=== PATIENT | male | born 1935 | race Caucasian/White ===

== ENCOUNTER 2017-10-23 15:40 | Emergency (ER) | payer MEDICARE, OTHER, SELFPAY | END 2017-10-23 18:16 | disposition home or self-care (01) | PROVIDERS: Emergency Provider Emergency Medicine; Family Provider Internal Medicine Cardiovascular Disease; Visit Provider Emergency Medicine | DX: I48.91 Unspecified atrial fibrillation (principal) | CPT/HCPCS: 71010; 71045; 80053; 83735; 84484; 85025; 85610; 85730; 93005; 93010; 96361; 96374; 99058; 99285 ==

== ENCOUNTER → 2018-03-27 13:10 | Outpatient (CLI) | payer MEDICARE, OTHER, SELFPAY ==
[2018-03-27 14:32] LABS: INR 2.6 (0.9-1.3); Prothrombin Time 28.3 SECONDS (10.1-12.7)
== END ==
PROVIDERS: Family Provider Internal Medicine Cardiovascular Disease; PCP Family Medicine; Visit Provider Family Medicine
DX: I48.91 Unspecified atrial fibrillation (principal); Z95.1 Presence of aortocoronary bypass graft; Z95.5 Presence of coronary angioplasty implant and graft
CPT/HCPCS: 36415; 85610

== ENCOUNTER → 2018-12-19 14:23 | Outpatient (CLI) | payer MEDICARE, OTHER, SELFPAY ==
--- NOTE | 2018-12-19 14:27 | DI.RAD.S_ITS ---
PROCEDURE: XR CHEST 2V INDICATIONS: Crackles on exam TECHNIQUE: 2 views of the chest were acquired. COMPARISON: [facility], , CHEST 1 VIEW, 10/23/2017, 16:18. FINDINGS: Surgical changes and devices: Median sternotomy wires are again seen. 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 Lungs and pleura: There is mild pulmonary vascular congestion. No definite focal infiltrate. No pleural effusions or pneumothorax. Mediastinum: Mediastinal contours are normal. Heart size is enlarged. Bones and chest wall: No suspicious bony abnormalities. Soft tissues appear unremarkable. IMPRESSION: Cardiomegaly and mild congestion. No focal infiltrate, pleural effusion or gross pneumothorax. Dictated by: Terry Mariscal M.D. on 12/19/2018 at 15:30 Approved by: Terry Mariscal M.D. on 12/19/2018 at 15:31
[2018-12-19 15:45] LABS: Alanine Aminotransferase 23 IU/L (21-72); Albumin 3.8 g/dL (3.5-5.0); Albumin Globulin Ratio 1.1 (1.0-2.8); Alkaline Phosphatase 103 U/L (38-126); Aspartate Aminotransferase 29 IU/L (17-59); Bilirubin Total 0.9 mg/dL (0.2-1.3); Blood Urea Nitrogen 20 mg/dL (9-20); Calcium 10.2 mg/dL (8.4-10.2); Carbon Dioxide 27 mmol/L (22-32); Chloride 102 mmol/L (98-107); Estimated Glomerular Filt Rate > 60.0 mL/min (>60); Globulin 3.4 g/dL (1.7-4.1); Glucose 153 mg/dL (80-110); HEMOLYSIS < 15 (0-50); Potassium 4.2 mmol/L (3.4-5.1); Sodium 137 mmol/L (137-145); Total Protein 7.2 g/dL (6.3-8.2)
[2018-12-19 15:56] LABS: B Type Natriuretic Peptide 205 (<100)
[2018-12-19 16:26] LABS: Add Manual Diff / Slide Review NO; Basophils Absolute Auto 0 /uL (0-100); Basophils Percent Auto 0.5 % (0-2); Eosinophils Absolute Auto 300 /uL (0-450); Eosinophils Percent Auto 3.3 % (2-4); Hematocrit 44.7 % (41-53); Lymphocytes Absolute Auto 1300 /uL (1100-4500); Lymphocytes Percent Auto 14.8 % (25-40); Mean Corpuscular HGB Conc 33.5 % (30-36); Mean Corpuscular Volume 86.6 fL (80-100); Monocytes Absolute Auto 1100 /uL (0-900); Neutrophils Absolute Auto 6300 /uL (1500-7000); Neutrophils Percent Auto 69.4 % (50-75); Platelet Count 263 X10^3/uL (150-400); Red Blood Cell Count 5.17 X10^6/uL (4.5-5.9); Red Cell Distribution Width 14.3 % (11.6-14.8); White Blood Cell Count 9.1 X10^3/uL (4.5-11.0)
[2018-12-19 17:40] LABS: Prostate Specific Antigen Scrn 1.84 ng/mL (0.1-4.0)
== END ==
PROVIDERS: Registered Nurse; PCP Family Medicine; Visit Provider Family Medicine
DX: R09.89 Other specified symptoms and signs involving the circulatory and respiratory systems (principal); I11.9 Hypertensive heart disease without heart failure; I48.91 Unspecified atrial fibrillation; R60.0 Localized edema; E78.2 Mixed hyperlipidemia; Z95.2 Presence of prosthetic heart valve
CPT/HCPCS: 36415; 71046; 80053; 83880; 84443; 85025; G0103

== ENCOUNTER → 2018-12-19 14:53 | Outpatient (CLI) | payer MEDICARE, OTHER, SELFPAY | PROVIDERS: PCP Family Medicine; Visit Provider Registered Nurse | DX: R09.89 Other specified symptoms and signs involving the circulatory and respiratory systems (principal); I51.7 Cardiomegaly; Z95.2 Presence of prosthetic heart valve ==

== ENCOUNTER → 2018-12-29 13:15 | Outpatient (CLI) | payer MEDICARE, OTHER, SELFPAY ==
--- NOTE | 2018-12-29 13:17 | DI.ECHO.S_ITS ---
[facility]---------+ [facility] +---------+ : : [address] : [address] : : : : [id number] : : : : Phone: [phone]+ Echocardiogram Report + + :Name: DARRION QUEVEDO Study Date: 12/29/2018 Height: 70 in : :[facility] Exam Location: [facility] Weight: 223 lb : : Gender: Male BSA: 2.2 m2 : :: 1935 Age: 83 yrs BP: 110/70 mmHg: :Reason For Study: Crackles on exam : : Performed By: Tish Page : :Referring: CAM ROBLES : + + Interpretation Summary Left ventricular wall thickness is at the upper limits of normal. Left ventricular ejection fraction is estimated to be .35. There is mild hypokinesis of the left ventricle and severe inferior hypokinesis. Laterl wall appears to move the best Right ventricular systolic function is mildly reduced. There is a bioprosthetic aortic valve. The prosthetic aortic valve is well-seated. Procedure: A two-dimensional transthoracic echocardiogram with color flow and Doppler was performed. The study quality was technically adequate. There is no prior echocardiogram noted for this patient. The heart rate ranged between 66-97 bpm during the study. Left Ventricle: The left ventricle is normal in size. Left ventricular wall thickness is at the upper limits of normal. Left ventricular ejection fraction is estimated to be .35. There is mild hypokinesis of the left ventricle and severe inferior hypokinesis. Laterl wall appears to move the best. There is a mild dyssynchronous contraction pattern, consistent with a conduction abnormality. Right Ventricle: The right ventricle is normal size. Right ventricular systolic function is mildly reduced. Atria: The left atrium is mildly dilated. The right atrium is severely dilated. There is no Doppler evidence for an interatrial shunt. Mitral Valve: The mitral valve leaflets are mildly calcified. There is mild mitral annular calcification. There is trace mitral regurgitation. Aortic Valve: There is a bioprosthetic aortic valve. The prosthetic aortic valve is well-seated. The gradients through the prosthetic aortic valve are within the normal range for this type of valve. There is trace aortic regurgitation. Tricuspid Valve: The tricuspid valve is normal in structure and function. There is trace tricuspid regurgitation. Pulmonary artery pressures cannot be estimated because of the lack of a measurable TR jet velocity. Pulmonic Valve: The pulmonic valve is not well seen, but is grossly normal. There is mild pulmonic regurgitation. Great Vessels: The aortic root is mildly dilated. The aortic arch is normal in size. The ascending aorta is moderate-severely enlarged. The pulmonary artery is not well visualized, but is probably normal size. The IVC is of normal diameter and collapses greater than 50% with a sniff. This suggests a low right atrial pressure of 3 mm Hg. Pericardium/ Pleura There is no pericardial effusion. There is no pleural effusion. MMode/2D Measurements & Calculations LVIDd: 5.2 cm LVOT diam: 2.4 cm LVIDs: 3.6 cm Ao root diam: 4.2 cm FS: 31.0 % asc Aorta Diam: 4.9 cm EPSS: 1.4 cm Ao Arch Diam (distal): 2.9 cm IVSd: 1.0 cm LVPWd: 0.97 cm LV gutierrez. diameter/BSA (cm/m^2): 2.4 LV sys. diameter/BSA (cm/m^2): 1.7 LA A2 area: 26.7 cm2 RA long axis: 5.2 cm LA A4 area: 25.9 cm2 RA area: 24.6 cm2 LA length (vol): 7.1 cm RA vol: 99.2 ml LA vol: 82.7 ml RA : 45.4 ml/m2 LA vol index: 37.8 ml/m2 RVD1 (basal): 4.7 cm TAPSE: 1.4 cm Doppler Measurements & Calculations Ao V2 max: 197.5 cm/sec LVOT Max Lyle: 52.2 cm/sec Ao V2 mean: 139.1 cm/sec LV V1 max P.1 mmHg Ao max P.0 mmHg LV V1 VTI: 8.9 cm Ao mean P.9 mmHg PALLAVI(I,D): 1.2 cm2 Ao V2 VTI: 32.2 cm PALLAVI(V,D): 1.1 cm2 sev ratio: 0.28 PALLAVI indexed to BSA (cm^2/m^2): 0.55 MV E max lyle: 80.2 cm/sec PA V2 max: 44.2 cm/sec Med Peak E' Lyle: 4.9 cm/sec PA V2 mean: 31.1 cm/sec E/E' med: 16.4 PA mean P.43 mmHg Lat Peak E' Lyle: 11.1 cm/sec PA Accel Time: 0.06 sec E/E' lat: 7.2 E/e' average: 11.8 MV P1/2t: 50.8 msec MV P1/2t max lyle: 80.9 cm/sec SV(LVOT): 38.6 ml MVA(2t): 4.3 cm2 Reading Physician:03:18 PM
== END ==
PROVIDERS: PCP Family Medicine; Visit Provider Registered Nurse
DX: I37.1 Nonrheumatic pulmonary valve insufficiency (principal); I77.89 Other specified disorders of arteries and arterioles; I48.91 Unspecified atrial fibrillation; Z95.1 Presence of aortocoronary bypass graft; Z95.2 Presence of prosthetic heart valve
CPT/HCPCS: 93306

== ENCOUNTER 2019-07-11 22:42 | Emergency (ER) | payer MEDICARE, OTHER, SELFPAY ==
--- NOTE | 2019-07-11 22:48 | ED_ITS ---
HPI - General Adult General Chief complaint: Weakness Stated complaint: Low Bp Time Seen by Provider: 07/11/19 22:45 Source: patient, family and EMS Mode of arrival: EMS Limitations: other (Dementia) History of Present Illness HPI narrative: 83-year-old male with history of dementia brought in by EMS for concerns of weakness and low blood pressure. Much of the HPI was provided by the patient's daughter who arrived shortly after the patient arrived. Upon my initial evaluation the patient he had no complaints. He stated that he was not weak any more than normal. He is unsure exactly why he was brought to the emergency department. When his daughter arrive she states that throughout today patient had been more weak than normal. Had some problems getting back into bed. At baseline patient's daughter states that he spends most of the day sitting in his chair. He does use a walker at home. Does get up and go to the bathroom however also has an adult diaper on doesn't always make it to the bathroom. Because he was weak earlier in the day they did take his blood pressure. At home it was noted that his systolic blood pressure was in the 70s to 90s. He did receive 500 cc of fluid EN route by EMS. Related Data Home Medications Medication Instructions Recorded Confirmed coq10 PO 12/29/17 03/14/19 Previous Rx's Medication Instructions Recorded aspirin 81 mg tablet,delayed 81 mg PO DAILY #90 tab 03/14/19 release carvedilol 12.5 mg tablet 12.5 mg PO BID #180 tab 03/14/19 furosemide 40 mg tablet 40 mg PO DAILY #90 tab 03/14/19 irbesartan 300 mg tablet 300 mg PO DAILY #90 tab 03/14/19 nitroglycerin 0.4 mg sublingual 0.4 mg SL Q5-15M PRN #100 tab 03/14/19 tablet potassium chloride 10 mEq 10 meq PO BID #180 cap 03/14/19 capsule,extended release risperidone 0.25 mg tablet 0.25 mg PO DAILY #90 tab 03/14/19 rosuvastatin 5 mg tablet 5 mg PO DAILY #90 tab 03/14/19 spironolactone 25 mg tablet 25 mg PO DAILY #90 tab 03/14/19 Allergies Allergy/AdvReac Type Severity Reaction Status Date / Time No Known Allergies Allergy Uncoded 03/14/19 12:13 Review of Systems Constitutional Constitutional: Denies fever(s), Denies headache(s) and Reports weakness ENT Ears, Nose, Mouth, and Throat: Denies headache(s) Cardiovascular Cardiovascular: Denies chest pain and Denies dyspnea Respiratory Respiratory: Denies dyspnea Gastrointestinal Gastrointestinal: Denies abdominal pain Integumentary/Breasts Skin/Breast: Denies rash Neurologic Neurologic: Denies behavioral changes, Denies headache(s) and Reports weakness Psychiatric Psychiatric: Denies behavioral changes Patient History Medical History Atrial fibrillation (Chronic ~2015) Cataract (Chronic ~2014) History of urinary incontinence (Chronic ~2014) Surgical History (Updated 12/29/17 @ 10:21 by Apolinar Cox MD) Anesthesia (Resolved) History of heart surgery (Resolved ~2009) History of heart surgery (Resolved ~2012) Social History Smoking Status: Former smoker alcohol intake: never substance use type: does not use Smoking Status: Former smoker Exam Initial Vital Signs Initial Vital Signs: Vital Signs Temperature 97.7 F 07/11/19 22:53 Pulse Rate 94 H 07/11/19 22:53 Respiratory Rate 18 07/11/19 22:53 Blood Pressure 113/55 L 07/11/19 22:53 Pulse Oximetry 99 07/11/19 22:53 Const General: cooperative and comfortable HENMT Head: normal to inspection and atraumatic Resp Effort & Inspection: normal respiratory effort Auscultation: clear to auscultation bilaterally Cardio Rate: regular rate Rhythm: regular rhythm GI Inspection: non-distended Palpation: soft Skin Lesions: no lesions Rashes: no rashes Neuro General: alert, awake and moves all extremities Cognition: abnormal cognition Speech: speech normal Other: Patient oriented to location. He does not know the year. Does not know the month. Patient's daughter states this is baseline for him. He moves all 4 extremities spontaneously. Has 5/5 upper and lower extremities strength. Extrem General: normal to inspection, capillary refill normal and No edema Psych Appearance: grossly normal and well kempt Scores GCS Antonette coma scale eye opening: Spontaneous Antonette coma scale verbal response: Confused Antonette coma scale motor response: Obey commands Antonette coma scale total score: 14 Course Orders Ordered: ED Orders 07/11/19 22:45 EKG-12 Lead Stat 07/11/19 23:10 Urinalysis and Microscopic Stat Vital Signs Vital signs: Vital Signs - 8 hr 07/11/19 22:53 07/12/19 00:45 Temperature 97.7 F Pulse Rate 94 H 69 Respiratory Rate 18 20 Blood Pressure 113/55 L 116/63 Pulse Oximetry 99 98 Medical Decision Making Medical Records Medical records reviewed: Yes I reviewed the patient's medical records. Lab Data Lab results reviewed: Yes I reviewed the patient's lab results. Labs: Lab Results 07/11/19 Range/Units 23:10 Urine Color Yellow Urine Appearance Clear Urine pH 5.0 (4.5-8.0) Ur Specific [place] 1.025 (1.000-1.035) Urine Protein Negative (Negative) Urine Glucose (UA) Negative (Negative) g/dL Urine Ketones Negative (NEGATIVE) Urine Occult Blood Negative (Negative) Urine Nitrate Negative (Negative) Urine Bilirubin Negative (NEGATIVE) Urine Urobilinogen 0.2 (0.2) E.U./dL Ur Leukocyte Esterase Negative (NEGATIVE) Urine RBC None seen (0-5/HPF) Urine WBC None seen (0-5/HPF) Urine Bacteria None seen (None) Ur Culture Indicated? Cult not indicated Micro UA Comment Microscopic normal ECG Data Attestation: I personally reviewed and interpreted this ECG as follows: Prior ECG tracings: not available for review Interpretation: Atrial fibrillation Ventricular rate of [address] T wave changes MDM Narrative Medical decision making narrative: Patient's blood pressure was fairly unremarkable here in the ER. Patient's daughter states that his systolic blood pressure is normally in the 110s. Patient seems to be at baseline neurologic status per the daughter. He was able to stand at bedside with a walker however is fairly unsteady with taking a few steps. In atrial fibrillation but this is not new for him. He is not on anticoagulation for a prior primary care provider note. Does not have a urinary tract infection. Patient's daughter was concerned about this. Had a long discussion with the patient's daughter regarding the patient. We did discuss that they should be considering pote ntially looking and other living situations to include assisted living. It appears that this patient is 100% dependent upon his 82-year-old to take care of him. He cannot dress himself. Cannot feed himself. Cannot go to the bathroom by himself. Cannot put on his own shoes. His has to help with this. Patient's daughter bedside expressed acknowledgement of this. Patient's daughter states that they're going to be moving the patient the beginning and next week with his into a town home which is smaller than their current home. I did inform him that this potentially may not be enough in the should consider other living situations to include senior living facility. This patient does have physical therapy which comes to the house. Unfortunately do not have a specific reason to admit the patient to the hospital. Prior primary doctor's note states the patient is a DNR. Patient's daughter is unsure the exactly what medicines the patient takes. We did discuss potentially decreasing his diuretic use because of his lower blood pressure. Patient started going to contact his primary provider tomorrow to discuss potential other options for home health. Daughter expressed understanding and agreement with plan. Discharge Plan Departure Patient Disposition: Home Clinical Impression: Dehydration Hypotension Qualifiers: Hypotension type: unspecified hypotension type Qualified Code(s): I95.9 - Hypotension, unspecified Discharge Date/Time: 07/12/19 00:45 Instructions: Exercises to Help Prevent Falls, How to Prevent Falls Activity Restrictions/Additional Instructions: Recommend that you evaluate his medications when you get home. If he is taking Lasix/furosemide on a daily basis then I would recommend you cut this in half. If this is the medication that he takes occasionally he is most likely on spironolactone on a daily basis. If this is the case recommend that you cut the spironolactone in half. Contact his primary provider for follow-up. Return to the emergency department for any new or worsening symptoms. Be sure to encourage fluid intake Prescriptions: No Action carvedilol 12.5 mg tablet 12.5 mg PO BID Qty: 180 RF: 3 furosemide 40 mg tablet 40 mg PO DAILY Qty: 90 RF: 3 irbesartan 300 mg tablet 300 mg PO DAILY Qty: 90 RF: 3 nitroglycerin 0.4 mg tablet, sublingual 0.4 mg SL Q5-15M PRN (Reason: chest pain) Qty: 100 RF: 3 potassium chloride 10 mEq capsule, extended release 10 meq PO BID Qty: 180 RF: 3 risperidone 0.25 mg tablet 0.25 mg PO DAILY Qty: 90 RF: 3 rosuvastatin 5 mg tablet 5 mg PO DAILY Qty: 90 RF: 3 aspirin [Adult Low Dose Aspirin] 81 mg tablet,delayed release (DR/EC) 81 mg PO DAILY Qty: 90 RF: 3 spironolactone 25 mg tablet 25 mg PO DAILY Qty: 90 RF: 3 coq10 150 mg capsule PO RF: 0 Referrals: Apolinar Cox MD [Primary Care Provider] -
[2019-07-11 22:53] VITALS: BP 113/55; PULSE 94; RESP 18; TEMP 36.5; O2SAT 99
[2019-07-11 23:14] LABS: Bacteria Urine None Seen; RBC Urine None Seen (0-5/HPF); WBC Urine None Seen (0-5/HPF)
[2019-07-11 23:15] LABS: Appearance Urine UA CLEAR; Bilirubin Urine UA NEGATIVE (NEGATIVE); Color Urine UA YELLOW; Glucose Urine UA NEGATIVE (Negative); Ketones Urine UA NEGATIVE (NEGATIVE); Leukocyte Esterase Urine UA NEGATIVE (NEGATIVE); Nitrite Urine UA NEGATIVE (Negative); Occult Blood Urine UA NEGATIVE (Negative); Protein Urine UA NEGATIVE (Negative); Specific Gravity Urine UA 1.025 (1.000-1.035); Urobilinogen Urine UA 0.2 E.U./dL (0.2)
[2019-07-11 23:29] LABS: Culture Indicated Urine Cult Not Indicated; Urine Comments Microscopic Normal
[2019-07-12 00:45] VITALS: BP 116/63; PULSE 69; RESP 20; O2SAT 98
== END 2019-07-12 00:45 | disposition home or self-care (01) ==
PROVIDERS: Emergency Provider Emergency Medicine; PCP Family Medicine
DX: E86.0 Dehydration (principal); I95.9 Hypotension, unspecified; I48.91 Unspecified atrial fibrillation
CPT/HCPCS: 81001; 93005; 99283